=== PATIENT | male | born 1970 | race Two or more races ===

== ENCOUNTER 2020-09-09 10:35 | Outpatient (CLI) | payer BC | END 2020-09-09 23:59 | disposition home or self-care (01) | LOC: WOU 10:35 | PROVIDERS: ATTEND Podiatrist Foot & Ankle Surgery | DX: E11.622 Type 2 diabetes mellitus with other skin ulcer (principal); L97.812 Non-pressure chronic ulcer of other part of right lower leg with fat layer exposed; E11.65 Type 2 diabetes mellitus with hyperglycemia; Z79.84 Long term (current) use of oral hypoglycemic drugs; G80.9 Cerebral palsy, unspecified; B35.1 Tinea unguium; M62.81 Muscle weakness (generalized); Z99.3 Dependence on wheelchair; Z79.899 Other long term (current) drug therapy | CPT/HCPCS: G0463 ==

== ENCOUNTER 2020-09-12 14:50 | Outpatient (CLI) | payer BC | END 2020-09-12 23:59 | disposition home or self-care (01) | LOC: RAD 14:50 | PROVIDERS: ATTEND Podiatrist Foot & Ankle Surgery | DX: L97.919 Non-pressure chronic ulcer of unspecified part of right lower leg with unspecified severity (principal); M17.11 Unilateral primary osteoarthritis, right knee; M92.521 Juvenile osteochondrosis of tibia tubercle, right leg; M79.89 Other specified soft tissue disorders | CPT/HCPCS: 73590-TC ==

== ENCOUNTER 2020-09-16 08:05 | Outpatient (CLI) | payer BC ==
[2020-09-16] MEDS ORDERED: LIDOCAINE SOLN 4% 50 ML BOTTLE ONE (08:09)
[2020-09-16] MEDS ORDERED: COLLAGENASE 5 GM TUBE UD TP ONE (08:31)
== END 2020-09-16 23:59 | disposition home or self-care (01) ==
LOC: WOU 08:05
PROVIDERS: ATTEND Podiatrist Foot & Ankle Surgery
DX: E11.622 Type 2 diabetes mellitus with other skin ulcer (principal); L97.812 Non-pressure chronic ulcer of other part of right lower leg with fat layer exposed; Z79.84 Long term (current) use of oral hypoglycemic drugs; G80.9 Cerebral palsy, unspecified; M62.81 Muscle weakness (generalized); B35.1 Tinea unguium; Z99.3 Dependence on wheelchair
CPT/HCPCS: 11042

== ENCOUNTER 2020-09-27 11:15 | Outpatient (CLI) | payer BC ==
[2020-09-27] MEDS ORDERED: LIDOCAINE SOLN 4% 50 ML BOTTLE ONE (11:26)
[2020-09-27] MEDS ORDERED: UREA 10% -AHA 4% CREAM 57 GM TUBE ONE (12:01)
[2020-09-27] MEDS ORDERED: CLOTRIMAZOLE 1% 15 GM TUBE TP ONE (12:14)
[2020-09-27] MEDS ORDERED: COLLAGENASE 5 GM TUBE UD TP ONE (12:18)
== END 2020-09-27 23:59 | disposition home or self-care (01) ==
LOC: WOU 11:15
PROVIDERS: ATTEND Podiatrist Foot & Ankle Surgery
DX: E11.621 Type 2 diabetes mellitus with foot ulcer (principal); L97.512 Non-pressure chronic ulcer of other part of right foot with fat layer exposed; E11.622 Type 2 diabetes mellitus with other skin ulcer; L97.812 Non-pressure chronic ulcer of other part of right lower leg with fat layer exposed; Z79.84 Long term (current) use of oral hypoglycemic drugs; G80.9 Cerebral palsy, unspecified; L60.2 Onychogryphosis; B35.1 Tinea unguium; I10 Essential (primary) hypertension; M62.81 Muscle weakness (generalized); Z99.3 Dependence on wheelchair
CPT/HCPCS: 11042

== ENCOUNTER 2020-10-12 13:30 | Outpatient (CLI) | payer BC ==
[2020-10-12] MEDS ORDERED: COLLAGENASE 5 GM TUBE UD TP ONE (14:09)
== END 2020-10-12 23:59 | disposition home or self-care (01) ==
LOC: WOU 13:30
PROVIDERS: ATTEND Podiatrist Foot & Ankle Surgery
DX: E11.622 Type 2 diabetes mellitus with other skin ulcer (principal); L97.812 Non-pressure chronic ulcer of other part of right lower leg with fat layer exposed; E11.621 Type 2 diabetes mellitus with foot ulcer; L97.412 Non-pressure chronic ulcer of right heel and midfoot with fat layer exposed; G80.9 Cerebral palsy, unspecified; L60.2 Onychogryphosis; B35.1 Tinea unguium; M62.81 Muscle weakness (generalized); Z99.3 Dependence on wheelchair; Z79.4 Long term (current) use of insulin; Z79.899 Other long term (current) drug therapy
CPT/HCPCS: 11042

== ENCOUNTER 2020-10-18 08:20 | Outpatient (CLI) | payer BC | END 2020-10-18 23:59 | disposition home or self-care (01) | LOC: WOU 08:20 | PROVIDERS: ATTEND Podiatrist Foot & Ankle Surgery | DX: E11.622 Type 2 diabetes mellitus with other skin ulcer (principal); L97.812 Non-pressure chronic ulcer of other part of right lower leg with fat layer exposed; L97.512 Non-pressure chronic ulcer of other part of right foot with fat layer exposed; G80.9 Cerebral palsy, unspecified; B35.1 Tinea unguium; L60.2 Onychogryphosis; R60.1 Generalized edema; M62.81 Muscle weakness (generalized); Z99.3 Dependence on wheelchair; Z79.84 Long term (current) use of oral hypoglycemic drugs; Z79.899 Other long term (current) drug therapy | CPT/HCPCS: 11042 ==

== ENCOUNTER 2020-10-21 12:50 | Outpatient (CLI) | payer BC | END 2020-10-21 23:59 | disposition home or self-care (01) | LOC: CARD 12:50 | PROVIDERS: ATTEND Podiatrist Foot & Ankle Surgery | DX: L98.499 Non-pressure chronic ulcer of skin of other sites with unspecified severity (principal) | CPT/HCPCS: 93970-TC ==

== ENCOUNTER 2020-10-25 09:10 | Outpatient (CLI) | payer BC ==
[2020-10-25] MEDS ORDERED: LIDOCAINE SOLN 4% 50 ML BOTTLE ONE (09:19)
[2020-10-25] MEDS ORDERED: COLLAGENASE 5 GM TUBE UD TP ONE (09:34)
== END 2020-10-25 23:59 | disposition home or self-care (01) ==
LOC: WOU 09:10
PROVIDERS: ATTEND Podiatrist Foot & Ankle Surgery
DX: E11.622 Type 2 diabetes mellitus with other skin ulcer (principal); L97.812 Non-pressure chronic ulcer of other part of right lower leg with fat layer exposed; E11.621 Type 2 diabetes mellitus with foot ulcer; L97.412 Non-pressure chronic ulcer of right heel and midfoot with fat layer exposed; G80.9 Cerebral palsy, unspecified; B35.1 Tinea unguium; L60.2 Onychogryphosis; M62.81 Muscle weakness (generalized); R60.1 Generalized edema; Z99.3 Dependence on wheelchair; Z79.84 Long term (current) use of oral hypoglycemic drugs; Z79.899 Other long term (current) drug therapy
CPT/HCPCS: 11042

== ENCOUNTER 2020-11-01 08:55 | Outpatient (CLI) | payer BC ==
[2020-11-01] MEDS ORDERED: UREA 10% -AHA 4% CREAM 57 GM TUBE ONE (09:36)
[2020-11-01] MEDS ORDERED: BACI/NEOM/POLY B OINT PKT 1 UDPKT PACKET ONE (09:49)
== END 2020-11-01 23:59 | disposition home or self-care (01) ==
LOC: WOU 08:55
PROVIDERS: ATTEND Podiatrist Foot & Ankle Surgery
DX: E11.622 Type 2 diabetes mellitus with other skin ulcer (principal); L97.812 Non-pressure chronic ulcer of other part of right lower leg with fat layer exposed; E11.621 Type 2 diabetes mellitus with foot ulcer; L97.412 Non-pressure chronic ulcer of right heel and midfoot with fat layer exposed; G80.9 Cerebral palsy, unspecified; M62.81 Muscle weakness (generalized); B35.1 Tinea unguium; R60.1 Generalized edema; Z99.3 Dependence on wheelchair; Z79.84 Long term (current) use of oral hypoglycemic drugs; Z79.899 Other long term (current) drug therapy; I10 Essential (primary) hypertension; Z87.891 Personal history of nicotine dependence
CPT/HCPCS: 11042; A6210

== ENCOUNTER 2020-11-11 09:05 | Outpatient (CLI) | payer BC ==
[2020-11-11] MEDS ORDERED: LIDOCAINE SOLN 4% 50 ML BOTTLE ONE (09:16)
[2020-11-11] MEDS ORDERED: BACI/NEOM/POLY B OINT PKT 1 UDPKT PACKET ONE (09:36)
== END 2020-11-11 23:59 | disposition home or self-care (01) ==
LOC: WOU 09:05
PROVIDERS: ATTEND Podiatrist Foot & Ankle Surgery
DX: E11.622 Type 2 diabetes mellitus with other skin ulcer (principal); L97.212 Non-pressure chronic ulcer of right calf with fat layer exposed; E11.621 Type 2 diabetes mellitus with foot ulcer; L97.418 Non-pressure chronic ulcer of right heel and midfoot with other specified severity; Z79.84 Long term (current) use of oral hypoglycemic drugs; G80.9 Cerebral palsy, unspecified; M62.81 Muscle weakness (generalized); L60.2 Onychogryphosis; B35.1 Tinea unguium; R60.1 Generalized edema; Z99.3 Dependence on wheelchair; Z79.899 Other long term (current) drug therapy
CPT/HCPCS: 11042; A6210

== ENCOUNTER 2020-11-15 09:20 | Outpatient (CLI) | payer BC ==
[2020-11-16] MEDS ORDERED: CLOTRIMAZOLE 1% 15 GM TUBE TP ONE (10:29)
== END 2020-11-15 23:59 | disposition home or self-care (01) ==
LOC: WOU 09:20
PROVIDERS: ATTEND Podiatrist Foot & Ankle Surgery
DX: E11.621 Type 2 diabetes mellitus with foot ulcer (principal); L97.822 Non-pressure chronic ulcer of other part of left lower leg with fat layer exposed; L97.518 Non-pressure chronic ulcer of other part of right foot with other specified severity; Z79.84 Long term (current) use of oral hypoglycemic drugs; G80.9 Cerebral palsy, unspecified; M62.81 Muscle weakness (generalized); Z99.3 Dependence on wheelchair; B35.1 Tinea unguium; R60.1 Generalized edema; L60.2 Onychogryphosis
CPT/HCPCS: 11042; A6210

== ENCOUNTER 2020-11-16 09:20 | Outpatient (CLI) | payer BC ==
[~2020-11-16 09:20] MED LIST: LIDOCAINE SOLN 4% 50 ML BOTTLE ONE
== END 2020-11-16 23:59 | disposition home health service (06) ==
LOC: VASLAB 09:20
PROVIDERS: ATTEND Internal Medicine
DX: E11.622 Type 2 diabetes mellitus with other skin ulcer (principal); L97.819 Non-pressure chronic ulcer of other part of right lower leg with unspecified severity; L97.419 Non-pressure chronic ulcer of right heel and midfoot with unspecified severity; E11.51 Type 2 diabetes mellitus with diabetic peripheral angiopathy without gangrene; Z79.84 Long term (current) use of oral hypoglycemic drugs; L89.153 Pressure ulcer of sacral region, stage 3; G80.9 Cerebral palsy, unspecified; I87.2 Venous insufficiency (chronic) (peripheral); I10 Essential (primary) hypertension; Z87.891 Personal history of nicotine dependence; L60.2 Onychogryphosis; R60.1 Generalized edema; M62.81 Muscle weakness (generalized); Z99.3 Dependence on wheelchair
CPT/HCPCS: 99215; A6210; G0463

== ENCOUNTER 2020-11-22 08:45 | Outpatient (CLI) | payer BC ==
[2020-11-22] MEDS ORDERED: LIDOCAINE SOLN 4% 50 ML BOTTLE ONE (09:04)
[2020-11-22] MEDS ORDERED: CLOTRIMAZOLE 1% 15 GM TUBE TP ONE (09:49)
== END 2020-11-22 23:59 | disposition home or self-care (01) ==
LOC: WOU 08:45
PROVIDERS: ATTEND Podiatrist Foot & Ankle Surgery
DX: E11.622 Type 2 diabetes mellitus with other skin ulcer (principal); L97.812 Non-pressure chronic ulcer of other part of right lower leg with fat layer exposed; E11.621 Type 2 diabetes mellitus with foot ulcer; L97.418 Non-pressure chronic ulcer of right heel and midfoot with other specified severity; Z79.84 Long term (current) use of oral hypoglycemic drugs; L89.153 Pressure ulcer of sacral region, stage 3; M62.81 Muscle weakness (generalized); G80.9 Cerebral palsy, unspecified; Z99.3 Dependence on wheelchair; B35.1 Tinea unguium; L60.2 Onychogryphosis; R60.1 Generalized edema; Z79.899 Other long term (current) drug therapy
CPT/HCPCS: 11042

== ENCOUNTER 2020-11-29 09:20 | Outpatient (CLI) | payer BC | END 2020-11-29 23:59 | disposition home or self-care (01) | LOC: WOU 09:20 | PROVIDERS: ATTEND Podiatrist Foot & Ankle Surgery | DX: E11.622 Type 2 diabetes mellitus with other skin ulcer (principal); L97.812 Non-pressure chronic ulcer of other part of right lower leg with fat layer exposed; E11.621 Type 2 diabetes mellitus with foot ulcer; L97.412 Non-pressure chronic ulcer of right heel and midfoot with fat layer exposed; L89.153 Pressure ulcer of sacral region, stage 3; G80.9 Cerebral palsy, unspecified; M62.81 Muscle weakness (generalized); L60.2 Onychogryphosis; B35.1 Tinea unguium; Z99.3 Dependence on wheelchair; Z79.84 Long term (current) use of oral hypoglycemic drugs; Z79.899 Other long term (current) drug therapy | CPT/HCPCS: 11042 ==

== ENCOUNTER 2020-12-06 09:30 | Outpatient (CLI) | payer BC ==
[2020-12-06] MEDS ORDERED: LIDOCAINE SOLN 4% 50 ML BOTTLE ONE (09:43)
== END 2020-12-06 23:59 | disposition home or self-care (01) ==
LOC: WOU 09:30
PROVIDERS: ATTEND Podiatrist Foot & Ankle Surgery
DX: E11.622 Type 2 diabetes mellitus with other skin ulcer (principal); L97.812 Non-pressure chronic ulcer of other part of right lower leg with fat layer exposed; E11.621 Type 2 diabetes mellitus with foot ulcer; L97.418 Non-pressure chronic ulcer of right heel and midfoot with other specified severity; L89.153 Pressure ulcer of sacral region, stage 3; G80.9 Cerebral palsy, unspecified; M62.81 Muscle weakness (generalized); Z99.3 Dependence on wheelchair; B35.1 Tinea unguium; L60.2 Onychogryphosis; R60.1 Generalized edema; Z79.84 Long term (current) use of oral hypoglycemic drugs; Z79.899 Other long term (current) drug therapy
CPT/HCPCS: 11042

== ENCOUNTER 2020-12-13 10:05 | Outpatient (CLI) | payer BC | END 2020-12-13 23:59 | disposition home or self-care (01) | LOC: WOU 10:05 | PROVIDERS: ATTEND Podiatrist Foot & Ankle Surgery | DX: E11.622 Type 2 diabetes mellitus with other skin ulcer (principal); L97.812 Non-pressure chronic ulcer of other part of right lower leg with fat layer exposed; L97.412 Non-pressure chronic ulcer of right heel and midfoot with fat layer exposed; G80.9 Cerebral palsy, unspecified; B35.1 Tinea unguium; L60.2 Onychogryphosis; R60.1 Generalized edema; M62.81 Muscle weakness (generalized); Z99.3 Dependence on wheelchair; Z79.84 Long term (current) use of oral hypoglycemic drugs; Z79.899 Other long term (current) drug therapy | CPT/HCPCS: 11042; A6452 ==

== ENCOUNTER → 2020-12-20 | Outpatient (CLI) | payer BC | END | disposition home health service (06) | LOC: WOU 09:45 | PROVIDERS: ATTEND Podiatrist Foot & Ankle Surgery | DX: E11.622 Type 2 diabetes mellitus with other skin ulcer (principal); L97.812 Non-pressure chronic ulcer of other part of right lower leg with fat layer exposed; E11.621 Type 2 diabetes mellitus with foot ulcer; L97.412 Non-pressure chronic ulcer of right heel and midfoot with fat layer exposed; Z79.84 Long term (current) use of oral hypoglycemic drugs; G80.9 Cerebral palsy, unspecified; M62.81 Muscle weakness (generalized); B35.1 Tinea unguium; L60.2 Onychogryphosis; L60.1 Onycholysis; I10 Essential (primary) hypertension; Z99.3 Dependence on wheelchair; Z79.899 Other long term (current) drug therapy | CPT/HCPCS: 11042 ==

== ENCOUNTER 2020-12-27 10:00 | Outpatient (CLI) | payer BC ==
[2020-12-27] MEDS ORDERED: LIDOCAINE SOLN 4% 50 ML BOTTLE ONE (10:02)
== END 2020-12-27 23:59 | disposition home health service (06) ==
LOC: WOU 10:00
PROVIDERS: ATTEND Podiatrist Foot & Ankle Surgery
DX: E11.622 Type 2 diabetes mellitus with other skin ulcer (principal); L97.812 Non-pressure chronic ulcer of other part of right lower leg with fat layer exposed; E11.621 Type 2 diabetes mellitus with foot ulcer; L97.412 Non-pressure chronic ulcer of right heel and midfoot with fat layer exposed; Z79.84 Long term (current) use of oral hypoglycemic drugs; G80.9 Cerebral palsy, unspecified; L60.2 Onychogryphosis; L60.1 Onycholysis; B35.1 Tinea unguium; M62.81 Muscle weakness (generalized); Z99.3 Dependence on wheelchair
CPT/HCPCS: 11042; A6452

== ENCOUNTER 2021-01-03 10:00 | Outpatient (CLI) | payer BC ==
[2021-01-03] MEDS ORDERED: LIDOCAINE SOLN 4% 50 ML BOTTLE ONE (10:13)
== END 2021-01-03 23:59 | disposition home health service (06) ==
LOC: WOU 10:00
PROVIDERS: ATTEND Podiatrist Foot & Ankle Surgery
DX: E11.622 Type 2 diabetes mellitus with other skin ulcer (principal); L97.812 Non-pressure chronic ulcer of other part of right lower leg with fat layer exposed; L97.412 Non-pressure chronic ulcer of right heel and midfoot with fat layer exposed; M62.81 Muscle weakness (generalized); Z99.3 Dependence on wheelchair; G80.9 Cerebral palsy, unspecified; B35.1 Tinea unguium; L60.2 Onychogryphosis; R60.1 Generalized edema; Z79.84 Long term (current) use of oral hypoglycemic drugs
CPT/HCPCS: 11042; A6452

== ENCOUNTER → 2021-01-10 | Outpatient (CLI) | payer BC ==
[~2021-01-10] MED LIST changes: +LIDOCAINE 2% JEL 5 ML TUBE ONE
== END | disposition home health service (06) ==
LOC: WOU 11:15
PROVIDERS: ATTEND Podiatrist Foot & Ankle Surgery
DX: E11.622 Type 2 diabetes mellitus with other skin ulcer (principal); L97.812 Non-pressure chronic ulcer of other part of right lower leg with fat layer exposed; L97.512 Non-pressure chronic ulcer of other part of right foot with fat layer exposed; Z79.84 Long term (current) use of oral hypoglycemic drugs; M62.81 Muscle weakness (generalized); G80.9 Cerebral palsy, unspecified; B35.1 Tinea unguium; L60.2 Onychogryphosis; R60.1 Generalized edema; Z99.3 Dependence on wheelchair; Z87.891 Personal history of nicotine dependence; Z79.899 Other long term (current) drug therapy
CPT/HCPCS: 11042; A6452

== ENCOUNTER 2021-01-17 10:40 | Outpatient (CLI) | payer BC ==
[2021-01-17] MEDS ORDERED: LIDOCAINE SOLN 4% 50 ML BOTTLE ONE (10:44)
== END 2021-01-17 23:59 | disposition home health service (06) ==
LOC: WOU 10:40
PROVIDERS: ATTEND Podiatrist Foot & Ankle Surgery
DX: E11.622 Type 2 diabetes mellitus with other skin ulcer (principal); L97.812 Non-pressure chronic ulcer of other part of right lower leg with fat layer exposed; E11.621 Type 2 diabetes mellitus with foot ulcer; L97.412 Non-pressure chronic ulcer of right heel and midfoot with fat layer exposed; Z79.84 Long term (current) use of oral hypoglycemic drugs; L89.153 Pressure ulcer of sacral region, stage 3; G80.9 Cerebral palsy, unspecified; B35.1 Tinea unguium; L60.2 Onychogryphosis; R60.1 Generalized edema; Z99.3 Dependence on wheelchair; Z79.899 Other long term (current) drug therapy
CPT/HCPCS: 11042; A6197; A6452

== ENCOUNTER 2021-01-24 10:50 | Outpatient (CLI) | payer BC ==
[2021-01-24] MEDS ORDERED: UREA 10% -AHA 4% CREAM 57 GM TUBE ONE (11:18)
== END 2021-01-24 23:59 | disposition home health service (06) ==
LOC: WOU 10:50
PROVIDERS: ATTEND Podiatrist Foot & Ankle Surgery
DX: E11.622 Type 2 diabetes mellitus with other skin ulcer (principal); L97.812 Non-pressure chronic ulcer of other part of right lower leg with fat layer exposed; E11.621 Type 2 diabetes mellitus with foot ulcer; L97.412 Non-pressure chronic ulcer of right heel and midfoot with fat layer exposed; Z79.84 Long term (current) use of oral hypoglycemic drugs; G80.9 Cerebral palsy, unspecified; B35.1 Tinea unguium; L60.2 Onychogryphosis; R60.1 Generalized edema; M62.81 Muscle weakness (generalized); Z99.3 Dependence on wheelchair
CPT/HCPCS: 11042; A6452

== ENCOUNTER 2021-02-01 12:35 | Outpatient (CLI) | payer BC | END 2021-02-01 23:59 | disposition home health service (06) | LOC: WOU 12:35 | PROVIDERS: ATTEND Podiatrist Foot & Ankle Surgery | DX: E11.622 Type 2 diabetes mellitus with other skin ulcer (principal); L97.812 Non-pressure chronic ulcer of other part of right lower leg with fat layer exposed; E11.621 Type 2 diabetes mellitus with foot ulcer; L97.412 Non-pressure chronic ulcer of right heel and midfoot with fat layer exposed; Z79.84 Long term (current) use of oral hypoglycemic drugs; G80.9 Cerebral palsy, unspecified; R60.0 Localized edema; B35.1 Tinea unguium; L89.153 Pressure ulcer of sacral region, stage 3; L60.2 Onychogryphosis; M62.81 Muscle weakness (generalized); Z99.3 Dependence on wheelchair; Z79.899 Other long term (current) drug therapy | CPT/HCPCS: 11042; A6452 ==

== ENCOUNTER 2021-02-08 14:20 | Outpatient (CLI) | payer BC ==
[2021-02-08] MEDS ORDERED: LIDOCAINE SOLN 4% 50 ML BOTTLE ONE (14:40)
[2021-02-08] MEDS ORDERED: UREA 10% -AHA 4% CREAM 57 GM TUBE ONE (15:32)
== END 2021-02-08 23:59 | disposition home health service (06) ==
LOC: WOU 14:20
PROVIDERS: ATTEND Podiatrist Foot & Ankle Surgery
DX: E11.622 Type 2 diabetes mellitus with other skin ulcer (principal); L97.812 Non-pressure chronic ulcer of other part of right lower leg with fat layer exposed; E11.621 Type 2 diabetes mellitus with foot ulcer; L97.412 Non-pressure chronic ulcer of right heel and midfoot with fat layer exposed; L60.2 Onychogryphosis; R60.1 Generalized edema; G80.9 Cerebral palsy, unspecified; B35.1 Tinea unguium; Z79.84 Long term (current) use of oral hypoglycemic drugs; Z79.899 Other long term (current) drug therapy
CPT/HCPCS: 11042; A6210; A6452

== ENCOUNTER 2021-02-15 13:15 | Outpatient (CLI) | payer BC | END 2021-02-15 23:59 | disposition home health service (06) | LOC: WOU 13:15 | PROVIDERS: ATTEND Podiatrist Foot & Ankle Surgery | DX: E11.622 Type 2 diabetes mellitus with other skin ulcer (principal); L97.812 Non-pressure chronic ulcer of other part of right lower leg with fat layer exposed; E11.621 Type 2 diabetes mellitus with foot ulcer; L97.412 Non-pressure chronic ulcer of right heel and midfoot with fat layer exposed; Z79.84 Long term (current) use of oral hypoglycemic drugs; Z79.899 Other long term (current) drug therapy; M62.81 Muscle weakness (generalized); Z99.3 Dependence on wheelchair; G80.9 Cerebral palsy, unspecified; B35.1 Tinea unguium; L60.2 Onychogryphosis; L89.153 Pressure ulcer of sacral region, stage 3 | CPT/HCPCS: 11042; 88304; 88311; 88312; A6452; G0463 ==

== ENCOUNTER 2021-02-21 11:15 | Outpatient (CLI) | payer BC ==
[~2021-02-21 11:15] MED LIST changes: -LIDOCAINE 2% JEL 5 ML TUBE ONE
== END 2021-02-21 23:59 | disposition home health service (06) ==
LOC: WOU 11:15
PROVIDERS: ATTEND Podiatrist Foot & Ankle Surgery
DX: E11.622 Type 2 diabetes mellitus with other skin ulcer (principal); L97.812 Non-pressure chronic ulcer of other part of right lower leg with fat layer exposed; E11.621 Type 2 diabetes mellitus with foot ulcer; L97.418 Non-pressure chronic ulcer of right heel and midfoot with other specified severity; Z79.84 Long term (current) use of oral hypoglycemic drugs; G80.9 Cerebral palsy, unspecified; L89.153 Pressure ulcer of sacral region, stage 3; B35.1 Tinea unguium; L60.2 Onychogryphosis; M62.81 Muscle weakness (generalized); Z99.3 Dependence on wheelchair; Z79.899 Other long term (current) drug therapy
CPT/HCPCS: 99215; A6197; A6452; G0463

== ENCOUNTER 2021-03-07 11:15 | Outpatient (CLI) | payer BC | END 2021-03-07 23:59 | disposition home health service (06) | LOC: WOU 11:15 | PROVIDERS: ATTEND Podiatrist Foot & Ankle Surgery | DX: Z09 Encounter for follow-up examination after completed treatment for conditions other than malignant neoplasm (principal); Z86.31 Personal history of diabetic foot ulcer; B35.1 Tinea unguium; L60.2 Onychogryphosis; G80.9 Cerebral palsy, unspecified; M62.81 Muscle weakness (generalized); R60.1 Generalized edema; Z99.3 Dependence on wheelchair; Z79.84 Long term (current) use of oral hypoglycemic drugs; Z79.899 Other long term (current) drug therapy | CPT/HCPCS: 99214; A6452; G0463 ==

== ENCOUNTER 2021-03-08 09:55 | Outpatient (CLI) | payer BC | END 2021-03-08 23:59 | disposition home health service (06) | LOC: WOU 09:55 | PROVIDERS: ATTEND Specialist | DX: B35.1 Tinea unguium (principal); L60.2 Onychogryphosis; M62.81 Muscle weakness (generalized); R60.0 Localized edema; G80.9 Cerebral palsy, unspecified; E11.9 Type 2 diabetes mellitus without complications; Z99.3 Dependence on wheelchair; Z79.84 Long term (current) use of oral hypoglycemic drugs; Z79.899 Other long term (current) drug therapy | CPT/HCPCS: G0463 ==

== ENCOUNTER 2021-03-14 15:15 | Outpatient (CLI) | payer BC ==
[2021-03-14] MEDS ORDERED: MUPIROCIN 2% CREAM 15 GM TUBE TP ONE (15:50)
[2021-03-14] MEDS ORDERED: UREA 10% -AHA 4% CREAM 57 GM TUBE ONE (16:02)
[2021-03-14] MEDS ORDERED: CLOTRIMAZOLE 1% 15 GM TUBE TP ONE (16:02)
== END 2021-03-14 23:59 | disposition home or self-care (01) ==
LOC: WOU 15:15
PROVIDERS: ATTEND Podiatrist Foot & Ankle Surgery
DX: E11.621 Type 2 diabetes mellitus with foot ulcer (principal); L97.422 Non-pressure chronic ulcer of left heel and midfoot with fat layer exposed; L60.2 Onychogryphosis; G80.9 Cerebral palsy, unspecified; M62.81 Muscle weakness (generalized); B35.1 Tinea unguium; Z99.3 Dependence on wheelchair; Z79.84 Long term (current) use of oral hypoglycemic drugs; Z79.899 Other long term (current) drug therapy
CPT/HCPCS: 11042; A6452

== ENCOUNTER 2021-03-15 15:01 | Outpatient (CLI) | payer BC | END 2021-03-15 23:59 | disposition home or self-care (01) | LOC: RAD 15:01 | PROVIDERS: ATTEND Specialist | DX: G80.9 Cerebral palsy, unspecified (principal); Z96.642 Presence of left artificial hip joint | CPT/HCPCS: 72220-TC ==

== ENCOUNTER 2021-04-04 10:15 | Outpatient (CLI) | payer BC | END 2021-04-04 23:59 | disposition home health service (06) | LOC: WOU 10:15 | PROVIDERS: ATTEND Podiatrist Foot & Ankle Surgery | DX: E11.621 Type 2 diabetes mellitus with foot ulcer (principal); L97.422 Non-pressure chronic ulcer of left heel and midfoot with fat layer exposed; M62.81 Muscle weakness (generalized); B35.1 Tinea unguium; L60.2 Onychogryphosis; R60.1 Generalized edema; Z99.3 Dependence on wheelchair; G80.8 Other cerebral palsy; Z79.84 Long term (current) use of oral hypoglycemic drugs; Z79.899 Other long term (current) drug therapy | CPT/HCPCS: 99215; A6209; A6452 ×2; G0463 ==

== ENCOUNTER 2021-04-28 10:20 | Outpatient (CLI) | payer BC ==
[2021-04-28] MEDS ORDERED: LIDOCAINE SOLN 4% 50 ML BOTTLE ONE (10:42)
[2021-04-28] MEDS ORDERED: CLOTRIMAZOLE 1% 15 GM TUBE TP ONE (11:16)
== END 2021-04-28 23:59 | disposition home health service (06) ==
LOC: WOU 10:20
PROVIDERS: ATTEND Podiatrist Foot & Ankle Surgery
DX: E11.621 Type 2 diabetes mellitus with foot ulcer (principal); L97.422 Non-pressure chronic ulcer of left heel and midfoot with fat layer exposed; G80.9 Cerebral palsy, unspecified; B35.1 Tinea unguium; L60.2 Onychogryphosis; M62.81 Muscle weakness (generalized); Z99.3 Dependence on wheelchair; Z79.84 Long term (current) use of oral hypoglycemic drugs
CPT/HCPCS: 11042; A6209; A6452

== ENCOUNTER 2021-05-03 11:00 | Outpatient (CLI) | payer BC ==
[2021-05-03] MEDS ORDERED: Z GUARD REMEDY 2 OZ OINT TP ONE (12:05)
[2021-05-03] MEDS ORDERED: CLOTRIMAZOLE 1% 15 GM TUBE TP ONE (12:05)
== END 2021-05-03 23:59 | disposition home or self-care (01) ==
LOC: WOU 11:00
PROVIDERS: ATTEND Specialist
DX: Z75.3 Unavailability and inaccessibility of health-care facilities (principal)

== ENCOUNTER 2021-05-03 13:16 | Outpatient (CLI) | payer BC | END 2021-05-03 23:59 | disposition home health service (06) | LOC: WOU 13:16 | PROVIDERS: ATTEND Podiatrist Foot & Ankle Surgery | DX: E11.621 Type 2 diabetes mellitus with foot ulcer (principal); L97.422 Non-pressure chronic ulcer of left heel and midfoot with fat layer exposed; G80.9 Cerebral palsy, unspecified; B35.1 Tinea unguium; R60.1 Generalized edema; M62.81 Muscle weakness (generalized); Z99.3 Dependence on wheelchair; L60.2 Onychogryphosis; I10 Essential (primary) hypertension; Z87.891 Personal history of nicotine dependence | CPT/HCPCS: 11042; 99214; A6452 ×2; G0463 ==

== ENCOUNTER 2021-05-09 10:23 | Outpatient (CLI) | payer BC ==
[2021-05-09] MEDS ORDERED: CLOTRIMAZOLE 1% 15 GM TUBE TP ONE (11:56)
== END 2021-05-09 23:59 | disposition home health service (06) ==
LOC: WOU 10:23
PROVIDERS: ATTEND Podiatrist Foot & Ankle Surgery
DX: E11.621 Type 2 diabetes mellitus with foot ulcer (principal); L97.428 Non-pressure chronic ulcer of left heel and midfoot with other specified severity; B35.1 Tinea unguium; L60.2 Onychogryphosis; G80.9 Cerebral palsy, unspecified; M62.81 Muscle weakness (generalized); Z99.3 Dependence on wheelchair; R60.1 Generalized edema; Z79.84 Long term (current) use of oral hypoglycemic drugs; Z79.899 Other long term (current) drug therapy
CPT/HCPCS: A6209; A6452; G0463; A6207

== ENCOUNTER 2021-05-10 10:40 | Outpatient (CLI) | payer BC | END 2021-05-10 23:59 | disposition home health service (06) | LOC: WOU 10:40 | PROVIDERS: ATTEND Specialist | DX: M53.3 Sacrococcygeal disorders, not elsewhere classified (principal); G80.9 Cerebral palsy, unspecified; M62.81 Muscle weakness (generalized); E11.9 Type 2 diabetes mellitus without complications; Z79.84 Long term (current) use of oral hypoglycemic drugs; I10 Essential (primary) hypertension; B35.1 Tinea unguium; L60.2 Onychogryphosis; R60.1 Generalized edema; Z99.3 Dependence on wheelchair; Z79.899 Other long term (current) drug therapy | CPT/HCPCS: G0463 ==

== ENCOUNTER 2021-05-16 10:15 | Outpatient (CLI) | payer BC | END 2021-05-16 23:59 | disposition home health service (06) | LOC: WOU 10:15 | PROVIDERS: ATTEND Podiatrist Foot & Ankle Surgery | DX: E11.621 Type 2 diabetes mellitus with foot ulcer (principal); L97.428 Non-pressure chronic ulcer of left heel and midfoot with other specified severity; Z79.84 Long term (current) use of oral hypoglycemic drugs; G80.9 Cerebral palsy, unspecified; B35.1 Tinea unguium; L60.2 Onychogryphosis; M21.542 Acquired clubfoot, left foot; M21.541 Acquired clubfoot, right foot; Z99.3 Dependence on wheelchair | CPT/HCPCS: 99214; A6209 ×2; A6452; G0463 ==

== ENCOUNTER 2021-08-01 10:25 | Outpatient (CLI) | payer BC ==
[2021-08-01] MEDS ORDERED: CADEXOMER IODINE UD 5 GM TUBE ONE (11:16)
== END 2021-08-01 23:59 | disposition home health service (06) ==
LOC: WOU 10:25
PROVIDERS: ATTEND Podiatrist Foot & Ankle Surgery
DX: E11.621 Type 2 diabetes mellitus with foot ulcer (principal); L97.422 Non-pressure chronic ulcer of left heel and midfoot with fat layer exposed; L97.412 Non-pressure chronic ulcer of right heel and midfoot with fat layer exposed; G80.9 Cerebral palsy, unspecified; Z99.3 Dependence on wheelchair; L60.2 Onychogryphosis; M62.81 Muscle weakness (generalized); M21.542 Acquired clubfoot, left foot; M21.541 Acquired clubfoot, right foot; B35.1 Tinea unguium; Z79.84 Long term (current) use of oral hypoglycemic drugs
CPT/HCPCS: G0463

== ENCOUNTER 2021-08-08 10:50 | Outpatient (CLI) | payer BC ==
[2021-08-08] MEDS ORDERED: LIDOCAINE 2% JEL 5 ML TUBE ONE (11:13)
[2021-08-08] MEDS ORDERED: CADEXOMER IODINE UD 5 GM TUBE ONE (11:30)
[2021-08-08] MEDS ORDERED: UREA 10% -AHA 4% CREAM 57 GM TUBE ONE (11:34)
== END 2021-08-08 23:59 | disposition home health service (06) ==
LOC: WOU 10:50
PROVIDERS: ATTEND Podiatrist Foot & Ankle Surgery
DX: E11.621 Type 2 diabetes mellitus with foot ulcer (principal); L97.412 Non-pressure chronic ulcer of right heel and midfoot with fat layer exposed; G80.9 Cerebral palsy, unspecified; L60.2 Onychogryphosis; R60.1 Generalized edema; M21.542 Acquired clubfoot, left foot; M21.541 Acquired clubfoot, right foot; B35.1 Tinea unguium; Z99.3 Dependence on wheelchair; Z79.84 Long term (current) use of oral hypoglycemic drugs; Z79.899 Other long term (current) drug therapy
CPT/HCPCS: 11042

== ENCOUNTER 2021-08-11 11:15 | Outpatient (CLI) | payer BC ==
[2021-08-11] MEDS ORDERED: LIDOCAINE 2% JEL 5 ML TUBE ONE (11:46)
== END 2021-08-11 23:59 | disposition home health service (06) ==
LOC: WOU 11:15
PROVIDERS: ATTEND Podiatrist Foot & Ankle Surgery
DX: E11.621 Type 2 diabetes mellitus with foot ulcer (principal); L97.412 Non-pressure chronic ulcer of right heel and midfoot with fat layer exposed; G80.9 Cerebral palsy, unspecified; M21.542 Acquired clubfoot, left foot; M21.541 Acquired clubfoot, right foot; R60.1 Generalized edema; L60.2 Onychogryphosis; B35.1 Tinea unguium; Z99.3 Dependence on wheelchair; Z79.84 Long term (current) use of oral hypoglycemic drugs; Z79.899 Other long term (current) drug therapy
CPT/HCPCS: 11042